=== PATIENT | male | born 1995 | race Caucasian/White ===

== ENCOUNTER 2017-09-15 03:26 | Emergency (ER) | payer OTHER ==
[2017-09-15] MEDS ORDERED: NS 0.9% 1000 ML*IV.FLUID IV ONE (03:53)
[2017-09-15] MEDS ORDERED: Acetaminophen TAB* 325 MG PO ONE (03:57)
[2017-09-15] MEDS ORDERED: Ketorolac INJ* 30 MG/ML 1 ML VIAL IV PUSH ONE (03:57)
[2017-09-15] MEDS ORDERED: methylPREDNISolone 125 MG* 2 ML VIAL IV ONE (03:57)
[2017-09-15] MEDS ORDERED: Clindamycin 900 MG IVPREMIX(* 900 MG/50 ML SDV IV ONE (03:58)
[2017-09-15 04:26] LABS: ABS Basophils 0 10^3/ul (0-0.2); ABS Eosinophils 0 10^3/ul (0-0.6); ABS Lymphocytes 0.9 10^3/ul (1.0-4.8); ABS Monocytes 1.2 10^3/ul (0-0.8); ABS Neutrophils 17.9 10^3/ul (1.5-7.7); ABS Nucleated RBC 0 10^3/ul; Eosinophil % 0.1 % (0-6); Hematocrit 46 % (42-52); Hemoglobin 16.4 g/dl (14.0-18.0); Lymphocyte % 4.4 % (25-47); Mean Corpuscular HGB Conc 35 g/dl (31-36); Mean Corpuscular Hemoglobin 32 pg (27-31); Mean Corpuscular Volume 90 fL (80-94); Mean Platelet Volume 9 um3 (7.4-10.4); Nucleated Red Blood Cells % 0; Platelet Count 167 10^3/ul (150-450); Red Blood Count 5.14 10^6/ul (4.0-5.4); Red Cell Distribution Width 13 % (10.5-15); White Blood Count 20.1 10^3/ul (3.5-10.8)
[2017-09-15 04:36] LABS: EGFR Non-African American 85.5 (>60)
[2017-09-15 06:05] VITALS: BP 141/57
--- NOTE | 2017-09-15 06:19 | ED ---
Keira Booth Nilda, scribed for Melissa John MD on 09/15/17 at 0611 . Throat Pain/Nasal Congestion - HPI Summary HPI Summary: This patient is a 22 year old M presenting to [facility] accompanied by father with a chief complaint of constant severe sore throat since yesterday. The patient rates the pain 10/10 in severity. Symptoms aggravated and alleviated by nothing. Patient reports chills, tonsillar swelling, and myalgia. Patient denies vomiting and fever. PMHx chronic back pain due to herniated disc. - History of Current Complaint Chief Complaint: EDThroatPain Time Seen by Provider: 09/15/17 03:38 Hx Obtained From: Patient Onset/Duration: Sudden Onset, Lasting Hours, Still Present Severity: Severe Cough: None - Allergies/Home Medications Allergies/Adverse Reactions: Allergies Allergy/AdvReac Type Severity Reaction Status Date / Time Amoxicillin Allergy Swelling Verified 09/15/17 04:24 Penicillins Allergy Unknown Verified 09/15/17 04:24 Reaction Details PMH/Surg Hx/FS Hx/Imm Hx Endocrine/Hematology History: Denies: Hx Anticoagulant Therapy, Hx Diabetes Cardiovascular History: Denies: Hx Hypertension, Hx Pacemaker/ICD History: Denies: Hx Renal Disease Musculoskeletal History: Reports: Hx Back Problems Denies: Hx Rheumatoid Arthritis, Hx Osteoporosis Sensory History: Denies: Hx Hearing Aid Neurological History: Reports: Other Neuro Impairments/Disorders - PAIN CLINIC INJECTIONS Psychiatric History: Denies: Hx Panic Disorder - Surgical History Surgery Procedure, Year, and Place: WISDOM TEETH Infectious Disease History: No Infectious Disease History: Denies: Traveled Outside the [place] in Last 30 Days - Family History Known Family History: Negative: Hypertension, Diabetes - Social History Alcohol Use: None Substance Use Type: Reports: None Smoking Status (MU): Never Smoked Tobacco Review of Systems Positive: Chills. Negative: Fever ENT: Other - tonsillar swelling Positive: Sore Throat Negative: Vomiting Positive: Myalgia, Other - chronic back pain All Other Systems Reviewed And Are Negative: Yes Physical Exam - Summary Physical Exam Summary: VITAL SIGNS: Reviewed. GENERAL: Patient is a well-developed and nourished male who is lying comfortable in the stretcher. Patient is not in any acute respiratory distress. HEAD AND FACE: No signs of trauma. No ecchymosis, hematomas or skull depressions. No sinus tenderness. EYES: PERRLA, EOMI x 2, No injected conjunctiva, no nystagmus. EARS: Hearing grossly intact. Ear canals and tympanic membranes are within normal limits. MOUTH: Bilat pharyngeal erythema without obvious exudate. NECK: Supple, trachea is midline, no JVD, no carotid bruit, no c-spine tenderness, neck with full ROM. Bilat upper cervical adenopathy CHEST: Symmetric, no tenderness at palpation LUNGS: Clear to auscultation bilaterally. No wheezing or crackles. CVS: Regular rate and rhythm, S1 and S2 present, no murmurs or gallops appreciated. ABDOMEN: Soft, non-tender. No signs of distention. No rebound no guarding, and no masses palpated. Bowel sounds are normal. EXTREMITIES: FROM in all major joints, no edema, no cyanosis or clubbing. NEURO: Alert and oriented x 3. No acute neurological deficits. Speech is normal and follows commands. SKIN: Dry and warm Triage Information Reviewed: Yes Vital Signs On Initial Exam: Initial Vitals Temp Pulse Resp BP Pulse Ox 101.8 F 108 20 152/83 100 09/15/17 03:29 09/15/17 03:29 09/15/17 03:29 09/15/17 03:29 09/15/17 03:29 Vital Signs Reviewed: Yes - James Coma Scale Coma Scale Total: 15 Diagnostics - Vital Signs Vital Signs Temp Pulse Resp BP Pulse Ox 09/15/17 05:06 100 137/64 96 09/15/17 05:00 103 97 09/15/17 04:30 102.8 F 143/61 09/15/17 04:29 94 100 09/15/17 03:29 101.8 F 108 20 152/83 100 - Laboratory Lab Results: Lab Results 09/15/17 09/15/17 09/15/17 Range/Units 04:08 04:08 04:08 WBC 20.1 H (3.5-10.8) 10^3/ul RBC 5.14 (4.0-5.4) 10^6/ul Hgb 16.4 (14.0-18.0) g/dl Hct 46 (42-52) % MCV 90 (80-94) fL MCH 32 H (27-31) pg MCHC 35 (31-36) g/dl RDW 13 (10.5-15) % Plt Count 167 (150-450) 10^3/ul MPV 9 (7.4-10.4) um3 Neut % (Auto) 89.2 H (38-83) % Lymph % (Auto) 4.4 L (25-47) % [place] % (Auto) 6.1 (1-9) % Eos % (Auto) 0.1 (0-6) % Baso % (Auto) 0.2 (0-2) % Absolute Neuts (auto) 17.9 H (1.5-7.7) 10^3/ul Absolute Lymphs (auto) 0.9 L (1.0-4.8) 10^3/ul Absolute Monos (auto) 1.2 H (0-0.8) 10^3/ul Absolute Eos (auto) 0 (0-0.6) 10^3/ul Absolute Basos (auto) 0 (0-0.2) 10^3/ul Absolute Nucleated RBC 0 10^3/ul Nucleated RBC % 0 Sodium 132 L (133-145) mmol/L Potassium 3.5 (3.5-5.0) mmol/L Chloride 99 L (101-111) mmol/L Carbon Dioxide 23 (22-32) mmol/L Anion Gap 10 (2-11) mmol/L BUN 13 (6-24) mg/dL Creatinine 1.08 (0.67-1.17) mg/dL Est GFR ( Amer) 110.0 (>60) Est GFR (Non-Af Amer) 85.5 (>60) BUN/Creatinine Ratio 12.0 (8-20) Glucose 149 H (70-100) mg/dL Lactic Acid 1.5 (0.5-2.0) mmol/L Calcium 9.9 (8.6-10.3) mg/dL Total Bilirubin 1.40 H (0.2-1.0) mg/dL AST 21 (13-39) U/L ALT 29 (7-52) U/L Alkaline Phosphatase 80 (34-104) U/L C-Reactive Protein 54.31 H (< 5.00) mg/L Total Protein 7.0 (6.4-8.9) g/dL Albumin 4.5 (3.2-5.2) g/dL Globulin 2.5 (2-4) g/dL Albumin/Globulin Ratio 1.8 (1-3) Monoscreen Negative (Negative) Influenza A (Rapid) (Negative) Influenza B (Rapid) (Negative) Group A Strep Rapid (Negative) 09/15/17 09/15/17 Range/Units 04:17 04:23 WBC (3.5-10.8) 10^3/ul RBC (4.0-5.4) 10^6/ul Hgb (14.0-18.0) g/dl Hct (42-52) % MCV (80-94) fL MCH (27-31) pg MCHC (31-36) g/dl RDW (10.5-15) % Plt Count (150-450) 10^3/ul MPV (7.4-10.4) um3 Neut % (Auto) (38-83) % Lymph % (Auto) (25-47) % [place] % (Auto) (1-9) % Eos % (Auto) (0-6) % Baso % (Auto) (0-2) % Absolute Neuts (auto) (1.5-7.7) 10^3/ul Absolute Lymphs (auto) (1.0-4.8) 10^3/ul Absolute Monos (auto) (0-0.8) 10^3/ul Absolute Eos (auto) (0-0.6) 10^3/ul Absolute Basos (auto) (0-0.2) 10^3/ul Absolute Nucleated RBC 10^3/ul Nucleated RBC % Sodium (133-145) mmol/L Potassium (3.5-5.0) mmol/L Chloride (101-111) mmol/L Carbon Dioxide (22-32) mmol/L Anion Gap (2-11) mmol/L BUN (6-24) mg/dL Creatinine (0.67-1.17) mg/dL Est GFR ( Amer) (>60) Est GFR (Non-Af Amer) (>60) BUN/Creatinine Ratio (8-20) Glucose (70-100) mg/dL Lactic Acid (0.5-2.0) mmol/L Calcium (8.6-10.3) mg/dL Total Bilirubin (0.2-1.0) mg/dL AST (13-39) U/L ALT (7-52) U/L Alkaline Phosphatase (34-104) U/L C-Reactive Protein (< 5.00) mg/L Total Protein (6.4-8.9) g/dL Albumin (3.2-5.2) g/dL Globulin (2-4) g/dL Albumin/Globulin Ratio (1-3) Monoscreen (Negative) Influenza A (Rapid) Negative (Negative) Influenza B (Rapid) Negative (Negative) Group A Strep Rapid Negative (Negative) Result Diagrams: 09/15/17 04:08 09/15/17 04:08 Lab Statement: Any lab studies that have been ordered have been reviewed, and results considered in the medical decision making process. Re-Evaluation - Re-Evaluation First Eval Re-Evaluation Time: 05:17 Comment: Reviewed labs with pt and father as well as plan to discharge. EENT Course/Dx - Course Assessment/Plan: Pt is a 22 y/o M presenting to ED with CC of severe sore throat and chills since yesterday. Exam reveals pharyngeal hyperemia. Lab showed leukocytosis. Pt most likely has bacterial pharyngitis. Pt is stable and will be D/C with antibiotics. Pt understands and is agreeable with plan. - Diagnoses Provider Diagnoses: Acute bacterial pharyngitis Discharge - Discharge Plan Condition: Stable Disposition: HOME Prescriptions: Clindamycin Cap(NF) [Clindamycin Cap 300 mg Cap(NF)] 300 mg PO Q6H #30 cap Ibuprofen TAB* [Motrin TAB* 800 MG] 800 mg PO Q6H PRN #30 tab PRN Reason: Fever/Pain predniSONE TAB* [Deltasone TAB*] 40 mg PO DAILY #6 tab Patient Education Materials: Pharyngitis (ED) Referrals: Julian Vasquez MD [Primary Care Provider] - 3 Days Additional Instructions: RETURN TO THE EMERGENCY DEPARTMENT FOR CHANGING OR WORSENING SYMPTOMS. The documentation as recorded by the Keira ruiz Nilda accurately reflects the service I personally performed and the decisions made by , Melissa John MD.
== END 2017-09-15 06:05 | disposition home or self-care (01) ==
LOC: ED 03:26
DX: J02.9 Acute pharyngitis, unspecified (principal)
CPT/HCPCS: 36415; 80053; 83605; 85025; 86140; 86308; 87040; 87502; 87651; 96365; 96375; 99284; A9270-GY; J1885; J2930

== ENCOUNTER 2018-01-20 16:40 | Emergency (ER) | payer OTHER ==
--- OUTSIDE RECORDS SUMMARY | 2018-01-20 16:48 | XMS REPORT ---
:1995 External Reference #:[id number] Author Organization [facility] Address [address] [place] [address] Phone [phone] Care Team Providers Name Role Phone Ken Medina M.D. 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 Onset: 08/03/2014 Allergic rhinitis Allan Martinez MD Active Onset: 08/03/2014 Dysfunction of eustachian tube Allan Martinez MD Active Family History Date Family Member(s) Problem(s) Comments General Allergies General Migraine Onset: (age 30 Years) Mother Migraine Social History Type Date Description Comments Occupation Student Cigarette Use Never Smoked Cigarettes Cigars Never Smoked Cigars Pipe Never Smoked A Pipe Smokeless Tobacco Never Used Smokeless Tobacco ETOH Use Currently occasionally consumes alcohol Smoking Patient has never smoked Allergies, Adverse Reactions, Alerts Date Description Reaction Status Severity Comments 08/03/2014 Penicillin facial edema active 12/24/2017 Amoxicillin edema, itching active Medications Medication Date Status Form Strength Qnty SIG Indications Ordering Provider Omeprazole Active Capsules DR 10mg Madayo, /0000 Jordan Quinnd Vitamin C Active Capsules 500mg 1 by mouth Self /0000 twice a day Methylprednisolon 09/06 Hx Tablets 4mg 1pack take as Allan schneider ( directed Andrade Peña MD 10/17 Flonase 08/03 Hx Suspension 50mcg/Act 1Mont 2 sprays h intranasal Andrade Peña every day 12/23 Naproxen Hx Tablets 250mg 60tab 1 tab by Self /0000 s mouth - twice a Tylenol Extra Hx Tablets 500mg 2 by mouth Self Strength /0000 every day - as needed 12/23 Vitamin C Hx Tablets 500mg take as Self /0000 directed - 12/23 Vital Signs Date Vital Result Comment 12/24/2017 Weight 194.00 lb Weight in kg's 87.998 Height 70 inches 5'10" Height in cm's 177.8 cm BMI (Body Mass Index) 27.8 kg/m2 10/18/2014 BP Systolic 145 mmHg BP Diastolic 73 mmHg Heart Rate 60 /min Respiratory Rate 17 /min Weight 175.00 lb Weight in kg's 79.380 Height 70 inches 5'10" Height in cm's 177.8 cm BMI (Body Mass Index) 25.1 kg/m2 09/06/2014 BP Systolic 132 mmHg BP Diastolic 78 mmHg Heart Rate 85 /min Respiratory Rate 16 /min Weight 175.00 lb Weight in kg's 79.380 Height 70 inches 5'10" Height in cm's 177.8 cm BMI (Body Mass Index) 25.1 kg/m2 08/03/2014 BP Systolic 124 mmHg BP Diastolic 73 mmHg Heart Rate 75 /min Respiratory Rate 16 /min Weight 175.00 lb Weight in kg's 79.380 Height 70 inches 5'10" Height in cm's 177.8 cm BMI (Body Mass Index) 25.1 kg/m2 Results Test Date Test Result H/L Range Note [facility] 09/06/2014 Alternaria tenuis IgE 5.47 kU/L 1 Panel Allergen A pullulans IgE Allergen 0.45 kU/L 2 Aspergillus Fumigatus IgE 0.54 kU/L 3 Botrytis Allergen IgE <0.35 kU/L 4 Valerie albicans Allergen IgE 0.84 kU/L 5 Cladosporium herbarum IgE <0.35 kU/L 6 Dermatophagoides farinae IgE 2.06 kU/L 7 Dermatophagoides pteronyssinus 0.50 kU/L 8 Epicoccum Allergen IgE 0.37 kU/L 9 Fusarium moniliforme Allergen 0.70 kU/L 10 Helminthosporium halodes IgE 0.59 kU/L 11 House Dust/Mar Allergen IgE <0.35 kU/L 12 House Dust/Inna Wyatt IgE <0.35 kU/L 13 Mucor racemosus Allergen IgE <0.35 kU/L 14 Penicillium notatum Allerg IgE <0.35 kU/L 15 Rhizopus nigricans Allerg IgE <0.35 kU/L 16 Stemphyllium IgE Allergen 1.11 kU/L 17 Trichophyton rubrum Allergen <0.35 kU/L 18 Ustilago nuda IgE Allergen <0.35 kU/L 19 [facility] All[facility] Panel 09/06/2014 Black/White Pepper IgE <0.35 kU/L 20 Allerg Egg White Allergen IgE <0.35 kU/L 21 Cat Epithelium Allergen IgE <0.35 kU/L 22 Chicken Meat Allergen IgE <0.35 kU/L 23 Chocolate Allergen IgE <0.35 kU/L 24 Coconut Allergen IgE <0.35 kU/L 25 Cockroach Allergen IgE <0.35 kU/L 26 Tarzan Allergen IgE <0.35 kU/L 27 Cow Epithelium Allergen IgE <0.35 kU/L 28 Dog Dander Allergen IgE <0.35 kU/L 29 Egg Yolk Allergen IgE <0.35 kU/L 30 Feather Mix Allergy Screen <0.35 kU/L 31 Garlic Allergen IgE <0.35 kU/L 32 Guinea Pig Allergen IgE <0.35 kU/L 33 Horse Dander Allergen IgE <0.35 kU/L 34 Malt Allergen IgE Antibody <0.35 kU/L 35 Cow's Milk Allergen IgE <0.35 kU/L 36 Onion Allergen IgE <0.35 kU/L 37 Blackburn Allergen IgE <0.35 kU/L 38 Rice Allergen IgE <0.35 kU/L 39 Soybean Allergen IgE <0.35 kU/L 40 Tomato Allergen IgE <0.35 kU/L 41 Wheat Allergen IgE <0.35 kU/L 42 Prakash's Yeast Allergen IgE <0.35 kU/L 43 [facility] All[facility] Panel 09/06/2014 Alternaria tenuis IgE Allergen 5.47 kU/ L 44 A pullulans IgE Allergen 0.45 kU/L 45 Aspergillus Fumigatus IgE 0.54 kU/L 46 Botrytis Allergen IgE <0.35 kU/L 47 Valerie albicans Allergen IgE 0.84 kU/L 48 Cladosporium herbarum IgE <0.35 kU/L 49 Dermatophagoides farinae IgE 2.06 kU/L 50 Dermatophagoides pteronyssinus 0.50 kU/L 51 Epicoccum Allergen IgE 0.37 kU/L 52 Fusarium moniliforme Allergen 0.70 kU/L 53 Helminthosporium halodes IgE 0.59 kU/L 54 House Dust/Mar Allergen IgE <0.35 kU/L 55 House Dust/Naples Wyatt IgE <0.35 kU/L 56 Mucor racemosus Allergen IgE <0.35 kU/L 57 Penicillium notatum Allerg IgE <0.35 kU/L 58 Rhizopus nigricans Allerg IgE <0.35 kU/L 59 Stemphyllium IgE Allergen 1.11 kU/L 60 Trichophyton rubrum Allergen <0.35 kU/L 61 Ustilago nuda IgE Allergen <0.35 kU/L 62 [facility] All[facility] Panel 09/06/2014 Black/White Pepper IgE <0.35 kU/L 63 Allerg Egg White Allergen IgE <0.35 kU/L 64 Cat Epithelium Allergen IgE <0.35 kU/L 65 Chicken Meat Allergen IgE <0.35 kU/L 66 Chocolate Allergen IgE <0.35 kU/L 67 Coconut Allergen IgE <0.35 kU/L 68 Cockroach Allergen IgE <0.35 kU/L 69 Tarzan Allergen IgE <0.35 kU/L 70 Cow Epithelium Allergen IgE <0.35 kU/L 71 Dog Dander Allergen IgE <0.35 kU/L 72 Egg Yolk Allergen IgE <0.35 kU/L 73 Feather Mix Allergy Screen <0.35 kU/L 74 Garlic Allergen IgE <0.35 kU/L 75 Guinea Pig Allergen IgE <0.35 kU/L 76 Horse Dander Allergen IgE <0.35 kU/L 77 Malt Allergen IgE Antibody <0.35 kU/L 78 Cow's Milk Allergen IgE <0.35 kU/L 79 Onion Allergen IgE <0.35 kU/L 80 Blackburn Allergen IgE <0.35 kU/L 81 Rice Allergen IgE <0.35 kU/L 82 Soybean Allergen IgE <0.35 kU/L 83 Tomato Allergen IgE <0.35 kU/L 84 Wheat Allergen IgE <0.35 kU/L 85 Prakash's Yeast Allergen IgE <0.35 kU/L 86 [facility] All[facility] Panel 09/06/2014 Alternaria tenuis IgE Allergen 5.47 kU/ L 87 A pullulans IgE Allergen 0.45 kU/L 88 Aspergillus Fumigatus IgE 0.54 kU/L 89 Botrytis Allergen IgE <0.35 kU/L 90 Valerie albicans Allergen IgE 0.84 kU/L 91 Cladosporium herbarum IgE <0.35 kU/L 92 Dermatophagoides farinae IgE 2.06 kU/L 93 Dermatophagoides pteronyssinus 0.50 kU/L 94 Epicoccum Allergen IgE 0.37 kU/L 95 Fusarium moniliforme Allergen 0.70 kU/L 96 Helminthosporium halodes IgE 0.59 kU/L 97 House Dust/Mar Allergen IgE <0.35 kU/L 98 House Dust/Inna Wyatt IgE <0.35 kU/L 99 Mucor racemosus Allergen IgE <0.35 kU/L 100 Penicillium notatum Allerg IgE <0.35 kU/L 101 Rhizopus nigricans Allerg IgE <0.35 kU/L 102 Stemphyllium IgE Allergen 1.11 kU/L 103 Trichophyton rubrum Allergen <0.35 kU/L 104 Ustilago nuda IgE Allergen <0.35 kU/L 105 [facility] Panel 09/06/2014 Black/White Pepper IgE <0.35 kU/L 106 Allerg Egg White Allergen IgE <0.35 kU/L 107 Cat Epithelium Allergen IgE <0.35 kU/L 108 Chicken Meat Allergen IgE <0.35 kU/L 109 Chocolate Allergen IgE <0.35 kU/L 110 Coconut Allergen IgE <0.35 kU/L 111 Cockroach Allergen IgE <0.35 kU/L 112 Tarzan Allergen IgE <0.35 kU/L 113 Cow Epithelium Allergen IgE <0.35 kU/L 114 Dog Dander Allergen IgE <0.35 kU/L 115 Egg Yolk Allergen IgE <0.35 kU/L 116 Feather Mix Allergy Screen <0.35 kU/L 117 Garlic Allergen IgE <0.35 kU/L 118 Guinea Pig Allergen IgE <0.35 kU/L 119 Horse Dander Allergen IgE <0.35 kU/L 120 Malt Allergen IgE Antibody <0.35 kU/L 121 Cow's Milk Allergen IgE <0.35 kU/L 122 Onion Allergen IgE <0.35 kU/L 123 Blackburn Allergen IgE <0.35 kU/L 124 Rice Allergen IgE <0.35 kU/L 125 Soybean Allergen IgE <0.35 kU/L 126 Tomato Allergen IgE <0.35 kU/L 127 Wheat Allergen IgE <0.35 kU/L 128 Prakash's Yeast Allergen IgE <0.35 kU/L 129 [facility] Allergy Panel 09/06/2014 Alternaria tenuis IgE Allergen 5.47 kU/ L 130 A pullulans IgE Allergen 0.45 kU/L 131 Aspergillus Fumigatus IgE 0.54 kU/L 132 Botrytis Allergen IgE <0.35 kU/L 133 Valerie albicans Allergen IgE 0.84 kU/L 134 Cladosporium herbarum IgE <0.35 kU/L 135 Dermatophagoides farinae IgE 2.06 kU/L 136 Dermatophagoides pteronyssinus 0.50 kU/L 137 Epicoccum Allergen IgE 0.37 kU/L 138 Fusarium moniliforme Allergen 0.70 kU/L 139 Helminthosporium halodes IgE 0.59 kU/L 140 House Dust/Mar Allergen IgE <0.35 kU/L 141 House Dust/Inna Wyatt IgE <0.35 kU/L 142 Mucor racemosus Allergen IgE <0.35 kU/L 143 Penicillium notatum Allerg IgE <0.35 kU/L 144 Rhizopus nigricans Allerg IgE <0.35 kU/L 145 Stemphyllium IgE Allergen 1.11 kU/L 146 Trichophyton rubrum Allergen <0.35 kU/L 147 Ustilago nuda IgE Allergen <0.35 kU/L 148 [facility] All[facility] Panel 09/06/2014 Black/White Pepper IgE <0.35 kU/L 149 Allerg Egg White Allergen IgE <0.35 kU/L 150 Cat Epithelium Allergen IgE <0.35 kU/L 151 Chicken Meat Allergen IgE <0.35 kU/L 152 Chocolate Allergen IgE <0.35 kU/L 153 Coconut Allergen IgE <0.35 kU/L 154 Cockroach Allergen IgE <0.35 kU/L 155 Tarzan Allergen IgE <0.35 kU/L 156 Cow Epithelium Allergen IgE <0.35 kU/L 157 Dog Dander Allergen IgE <0.35 kU/L 158 Egg Yolk Allergen IgE <0.35 kU/L 159 Feather Mix Allergy Screen <0.35 kU/L 160 Garlic Allergen IgE <0.35 kU/L 161 Guinea Pig Allergen IgE <0.35 kU/L 162 Horse Dander Allergen IgE <0.35 kU/L 163 Malt Allergen IgE Antibody <0.35 kU/L 164 Cow's Milk Allergen IgE <0.35 kU/L 165 Onion Allergen IgE <0.35 kU/L 166 Blackburn Allergen IgE <0.35 kU/L 167 Rice Allergen IgE <0.35 kU/L 168 Soybean Allergen IgE <0.35 kU/L 169 Tomato Allergen IgE <0.35 kU/L 170 Wheat Allergen IgE <0.35 kU/L 171 Prakash's Yeast Allergen IgE <0.35 kU/L 172 [facility] All[facility] Panel 09/06/2014 Alternaria tenuis IgE Allergen 5.47 kU/ L 173 A pullulans IgE Allergen 0.45 kU/L 174 Aspergillus Fumigatus IgE 0.54 kU/L 175 Botrytis Allergen IgE <0.35 kU/L 176 Valerie albicans Allergen IgE 0.84 kU/L 177 Cladosporium herbarum IgE <0.35 kU/L 178 Dermatophagoides farinae IgE 2.06 kU/L 179 Dermatophagoides pteronyssinus 0.50 kU/L 180 Epicoccum Allergen IgE 0.37 kU/L 181 Fusarium moniliforme Allergen 0.70 kU/L 182 Helminthosporium halodes IgE 0.59 kU/L 183 House Dust/Mar Allergen IgE <0.35 kU/L 184 House Dust/Naples Wyatt IgE <0.35 kU/L 185 Mucor racemosus Allergen IgE <0.35 kU/L 186 Penicillium notatum Allerg IgE <0.35 kU/L 187 Rhizopus nigricans Allerg IgE <0.35 kU/L 188 Stemphyllium IgE Allergen 1.11 kU/L 189 Trichophyton rubrum Allergen <0.35 kU/L 190 Ustilago nuda IgE Allergen <0.35 kU/L 191 [facility] All[facility] Panel 09/06/2014 Black/White Pepper IgE <0.35 kU/L 192 Allerg Egg White Allergen IgE <0.35 kU/L 193 Cat Epithelium Allergen IgE <0.35 kU/L 194 Chicken Meat Allergen IgE <0.35 kU/L 195 Chocolate Allergen IgE <0.35 kU/L 196 Coconut Allergen IgE <0.35 kU/L 197 Cockroach Allergen IgE <0.35 kU/L 198 Tarzan Allergen IgE <0.35 kU/L 199 Cow Epithelium Allergen IgE <0.35 kU/L 200 Dog Dander Allergen IgE <0.35 kU/L 201 Egg Yolk Allergen IgE <0.35 kU/L 202 Feather Mix Allergy Screen <0.35 kU/L 203 Garlic Allergen IgE <0.35 kU/L 204 Guinea Pig Allergen IgE <0.35 kU/L 205 Horse Dander Allergen IgE <0.35 kU/L 206 Malt Allergen IgE Antibody <0.35 kU/L 207 Cow's Milk Allergen IgE <0.35 kU/L 208 Onion Allergen IgE <0.35 kU/L 209 Blackburn Allergen IgE <0.35 kU/L 210 Rice Allergen IgE <0.35 kU/L 211 Soybean Allergen IgE <0.35 kU/L 212 Tomato Allergen IgE <0.35 kU/L 213 Wheat Allergen IgE <0.35 kU/L 214 Prakash's Yeast Allergen IgE <0.35 kU/L 215 [facility] All[facility] Panel 09/06/2014 Alternaria tenuis IgE Allergen 5.47 kU/ L 216 A pullulans IgE Allergen 0.45 kU/L 217 Aspergillus Fumigatus IgE 0.54 kU/L 218 Botrytis Allergen IgE <0.35 kU/L 219 Valerie albicans Allergen IgE 0.84 kU/L 220 Cladosporium herbarum IgE <0.35 kU/L 221 Dermatophagoides farinae IgE 2.06 kU/L 222 Dermatophagoides pteronyssinus 0.50 kU/L 223 Epicoccum Allergen IgE 0.37 kU/L 224 Fusarium moniliforme Allergen 0.70 kU/L 225 Helminthosporium halodes IgE 0.59 kU/L 226 House Dust/Mar Allergen IgE <0.35 kU/L 227 House Dust/Naples Wyatt IgE <0.35 kU/L 228 Mucor racemosus Allergen IgE <0.35 kU/L 229 Penicillium notatum Allerg IgE <0.35 kU/L 230 Rhizopus nigricans Allerg IgE <0.35 kU/L 231 Stemphyllium IgE Allergen 1.11 kU/L 232 Trichophyton rubrum Allergen <0.35 kU/L 233 Ustilago nuda IgE Allergen <0.35 kU/L 234 [facility] All[facility] Panel 09/06/2014 Black/White Pepper IgE <0.35 kU/L 235 Allerg Egg White Allergen IgE <0.35 kU/L 236 Cat Epithelium Allergen IgE <0.35 kU/L 237 Chicken Meat Allergen IgE <0.35 kU/L 238 Chocolate Allergen IgE <0.35 kU/L 239 Coconut Allergen IgE <0.35 kU/L 240 Cockroach Allergen IgE <0.35 kU/L 241 Tarzan Allergen IgE <0.35 kU/L 242 Cow Epithelium Allergen IgE <0.35 kU/L 243 Dog Dander Allergen IgE <0.35 kU/L 244 Egg Yolk Allergen IgE <0.35 kU/L 245 Feather Mix Allergy Screen <0.35 kU/L 246 Garlic Allergen IgE <0.35 kU/L 247 Guinea Pig Allergen IgE <0.35 kU/L 248 Horse Dander Allergen IgE <0.35 kU/L 249 Malt Allergen IgE Antibody <0.35 kU/L 250 Cow's Milk Allergen IgE <0.35 kU/L 251 Onion Allergen IgE <0.35 kU/L 252 Blackburn Allergen IgE <0.35 kU/L 253 Rice Allergen IgE <0.35 kU/L 254 Soybean Allergen IgE <0.35 kU/L 255 Tomato Allergen IgE <0.35 kU/L 256 Wheat Allergen IgE <0.35 kU/L 257 Prakash's Yeast Allergen IgE <0.35 kU/L 258 [facility] Allergy Panel 09/06/2014 Alternaria tenuis IgE Allergen 5.47 kU/ L 259 A pullulans IgE Allergen 0.45 kU/L 260 Aspergillus Fumigatus IgE 0.54 kU/L 261 Botrytis Allergen IgE <0.35 kU/L 262 Valerie albicans Allergen IgE 0.84 kU/L 263 Cladosporium herbarum IgE <0.35 kU/L 264 Dermatophagoides farinae IgE 2.06 kU/L 265 Dermatophagoides pteronyssinus 0.50 kU/L 266 Epicoccum Allergen IgE 0.37 kU/L 267 Fusarium moniliforme Allergen 0.70 kU/L 268 Helminthosporium halodes IgE 0.59 kU/L 269 House Dust/Mar Allergen IgE <0.35 kU/L 270 House Dust/Inna Wyatt IgE <0.35 kU/L 271 Mucor racemosus Allergen IgE <0.35 kU/L 272 Penicillium notatum Allerg IgE <0.35 kU/L 273 Rhizopus nigricans Allerg IgE <0.35 kU/L 274 Stemphyllium IgE Allergen 1.11 kU/L 275 Trichophyton rubrum Allergen <0.35 kU/L 276 Ustilago nuda IgE Allergen <0.35 kU/L 277 [facility] Allergy Panel 09/06/2014 Black/White Pepper IgE <0.35 kU/L 278 Allerg Egg White Allergen IgE <0.35 kU/L 279 Cat Epithelium Allergen IgE <0.35 kU/L 280 Chicken Meat Allergen IgE <0.35 kU/L 281 Chocolate Allergen IgE <0.35 kU/L 282 Coconut Allergen IgE <0.35 kU/L 283 Cockroach Allergen IgE <0.35 kU/L 284 Tarzan Allergen IgE <0.35 kU/L 285 Cow Epithelium Allergen IgE <0.35 kU/L 286 Dog Dander Allergen IgE <0.35 kU/L 287 Egg Yolk Allergen IgE <0.35 kU/L 288 Feather Mix Allergy Screen <0.35 kU/L 289 Garlic Allergen IgE <0.35 kU/L 290 Guinea Pig Allergen IgE <0.35 kU/L 291 Horse Dander Allergen IgE <0.35 kU/L 292 Malt Allergen IgE Antibody <0.35 kU/L 293 Cow's Milk Allergen IgE <0.35 kU/L 294 Onion Allergen IgE <0.35 kU/L 295 Blackburn Allergen IgE <0.35 kU/L 296 Rice Allergen IgE <0.35 kU/L 297 Soybean Allergen IgE <0.35 kU/L 298 Tomato Allergen IgE <0.35 kU/L 299 Wheat Allergen IgE <0.35 kU/L 300 Prakash's Yeast Allergen IgE <0.35 kU/L 301 1 Class 3 (Positive 3.50-17.4) 2 Class 1 (Equivocal 0.35-0.69) 3 Class 1 (Equivocal 0.35-0.69) 4 Class 0 (Negative <0.35) 5 Class 2 (Positive 0.70-3.49) 6 Class 0 (Negative <0.35) 7 Class 2 (Positive 0.70-3.49) 8 Class 1 (Equivocal 0.35-0.69) 9 Class 1 (Equivocal 0.35-0.69) 10 Class 2 (Positive 0.70-3.49) 11 Class 1 (Equivocal 0.35-0.69) 12 Class 0 (Negative <0.35) 13 Class 0 (Negative <0.35) Test Performed by: [address] [address] Ironworker: Atilio Ji M.D. 14 Class 0 (Negative <0.35) 15 Class 0 (Negative <0.35) 16 Class 0 (Negative <0.35) 17 Class 2 (Positive 0.70-3.49) 18 Class 0 (Negative <0.35) 19 Class 0 (Negative <0.35) ADDITIONAL INFORMATION Analyte Specific Reagent: This test was developed and its performance characteristics determined by [facility]. It has not been cleared or approved by the U.S. Food and Drug Administration. 20 Class 0 (Negative <0.35) 21 Class 0 (Negative <0.35) 22 Class 0 (Negative <0.35) 23 Class 0 (Negative <0.35) 24 Class 0 (Negative <0.35) 25 Class 0 (Negative <0.35) 26 Class 0 (Negative <0.35) 27 Class 0 (Negative <0.35) 28 Class 0 (Negative <0.35) 29 Class 0 (Negative <0.35) 30 Class 0 (Negative <0.35) 31 Class 0 (Negative <0.35) ADDITIONAL INFORMATION Feather Panel 2: Goose feathers Chicken feathers Duck feathers Amelia feathers Analyte Specific Reagent: This test was developed and its performance characteristics determined by [facility]. It has not been cleared or approved by the U.S. Food and Drug Administration. 32 Class 0 (Negative <0.35) 33 Class 0 (Negative <0.35) 34 Class 0 (Negative <0.35) Test Performed by: [facility] - [address] [address] Ironworker: Atilio Ji M.D. 35 Class 0 (Negative <0.35) 36 Class 0 (Negative <0.35) 37 Class 0 (Negative <0.35) 38 Class 0 (Negative <0.35) 39 Class 0 (Negative <0.35) 40 Class 0 (Negative <0.35) 41 Class 0 (Negative <0.35) 42 Class 0 (Negative <0.35) 43 Class 0 (Negative <0.35) 44 Class 3 (Positive 3.50-17.4) 45 Class 1 (Equivocal 0.35-0.69) 46 Class 1 (Equivocal 0.35-0.69) 47 Class 0 (Negative <0.35) 48 Class 2 (Positive 0.70-3.49) 49 Class 0 (Negative <0.35) 50 Class 2 (Positive 0.70-3.49) 51 Class 1 (Equivocal 0.35-0.69) 52 Class 1 (Equivocal 0.35-0.69) 53 Class 2 (Positive 0.70-3.49) 54 Class 1 (Equivocal 0.35-0.69) 55 Class 0 (Negative <0.35) 56 Class 0 (Negative <0.35) Test Performed by: [facility] - [address] [address] Ironworker: Atilio Ji M.D. 57 Class 0 (Negative <0.35) 58 Class 0 (Negative <0.35) 59 Class 0 (Negative <0.35) 60 Class 2 (Positive 0.70-3.49) 61 Class 0 (Negative <0.35) 62 Class 0 (Negative <0.35) ADDITIONAL INFORMATION Analyte Specific Reagent: This test was developed and its performance characteristics determined by [facility]. It has not been cleared or approved by the U.S. Food and Drug Administration. 63 Class 0 (Negative <0.35) 64 Class 0 (Negative <0.35) 65 Class 0 (Negative <0.35) 66 Class 0 (Negative <0.35) 67 Class 0 (Negative <0.35) 68 Class 0 (Negative <0.35) 69 Class 0 (Negative <0.35) 70 Class 0 (Negative <0.35) 71 Class 0 (Negative <0.35) 72 Class 0 (Negative <0.35) 73 Class 0 (Negative <0.35) 74 Class 0 (Negative <0.35) ADDITIONAL INFORMATION Feather Panel 2: Goose feathers Chicken feathers Duck feathers Amelia feathers Analyte Specific Reagent: This test was developed and its performance characteristics determined by [facility]. It has not been cleared or approved by the U.S. Food and Drug Administration. 75 Class 0 (Negative <0.35) 76 Class 0 (Negative <0.35) 77 Class 0 (Negative <0.35) Test Performed by: [place] [address] Ironworker: Atilio Ji M.D. 78 Class 0 (Negative <0.35) 79 Class 0 (Negative <0.35) 80 Class 0 (Negative <0.35) 81 Class 0 (Negative <0.35) 82 Class 0 (Negative <0.35) 83 Class 0 (Negative <0.35) 84 Class 0 (Negative <0.35) 85 Class 0 (Negative <0.35) 86 Class 0 (Negative <0.35) 87 Class 3 (Positive 3.50-17.4) 88 Class 1 (Equivocal 0.35-0.69) 89 Class 1 (Equivocal 0.35-0.69) 90 Class 0 (Negative <0.35) 91 Class 2 (Positive 0.70-3.49) 92 Class 0 (Negative <0.35) 93 Class 2 (Positive 0.70-3.49) 94 Class 1 (Equivocal 0.35-0.69) 95 Class 1 (Equivocal 0.35-0.69) 96 Class 2 (Positive 0.70-3.49) 97 Class 1 (Equivocal 0.35-0.69) 98 Class 0 (Negative <0.35) 99 Class 0 (Negative <0.35) Test Performed by: [place] [address] Ironworker: Atilio Ji M.D. 100 Class 0 (Negative <0.35) 101 Class 0 (Negative <0.35) 102 Class 0 (Negative <0.35) 103 Class 2 (Positive 0.70-3.49) 104 Class 0 (Negative <0.35) 105 Class 0 (Negative <0.35) ADDITIONAL INFORMATION Analyte Specific Reagent: This test was developed and its performance characteristics determined by [facility]. It has not been cleared or approved by the U.S. Food and Drug Administration. 106 Class 0 (Negative <0.35) 107 Class 0 (Negative <0.35) 108 Class 0 (Negative <0.35) 109 Class 0 (Negative <0.35) 110 Class 0 (Negative <0.35) 111 Class 0 (Negative <0.35) 112 Class 0 (Negative <0.35) 113 Class 0 (Negative <0.35) 114 Class 0 (Negative <0.35) 115 Class 0 (Negative <0.35) 116 Class 0 (Negative <0.35) 117 Class 0 (Negative <0.35) ADDITIONAL INFORMATION Feather Panel 2: Goose feathers Chicken feathers Duck feathers Amelia feathers Analyte Specific Reagent: This test was developed and its performance characteristics determined by [facility]. It has not been cleared or approved by the U.S. Food and Drug Administration. 118 Class 0 (Negative <0.35) 119 Class 0 (Negative <0.35) 120 Class 0 (Negative <0.35) Test Performed by: [place] [address] Ironworker: Atilio Ji M.D. 121 Class 0 (Negative <0.35) 122 Class 0 (Negative <0.35) 123 Class 0 (Negative <0.35) 124 Class 0 (Negative <0.35) 125 Class 0 (Negative <0.35) 126 Class 0 (Negative <0.35) 127 Class 0 (Negative <0.35) 128 Class 0 (Negative <0.35) 129 Class 0 (Negative <0.35) 130 Class 3 (Positive 3.50-17.4) 131 Class 1 (Equivocal 0.35-0.69) 132 Class 1 (Equivocal 0.35-0.69) 133 Class 0 (Negative <0.35) 134 Class 2 (Positive 0.70-3.49) 135 Class 0 (Negative <0.35) 136 Class 2 (Positive 0.70-3.49) 137 Class 1 (Equivocal 0.35-0.69) 138 Class 1 (Equivocal 0.35-0.69) 139 Class 2 (Positive 0.70-3.49) 140 Class 1 (Equivocal 0.35-0.69) 141 Class 0 (Negative <0.35) 142 Class 0 (Negative <0.35) Test Performed by: [place] [id number] Ironworker: Atilio Ji M.D. 143 Class 0 (Negative <0.35) 144 Class 0 (Negative <0.35) 145 Class 0 (Negative <0.35) 146 Class 2 (Positive 0.70-3.49) 147 Class 0 (Negative <0.35) 148 Class 0 (Negative <0.35) ADDITIONAL INFORMATION Analyte Specific Reagent: This test was developed and its performance characteristics determined by [facility]. It has not been cleared or approved by the U.S. Food and Drug Administration. 149 Class 0 (Negative <0.35) 150 Class 0 (Negative <0.35) 151 Class 0 (Negative <0.35) 152 Class 0 (Negative <0.35) 153 Class 0 (Negative <0.35) 154 Class 0 (Negative <0.35) 155 Class 0 (Negative <0.35) 156 Class 0 (Negative <0.35) 157 Class 0 (Negative <0.35) 158 Class 0 (Negative <0.35) 159 Class 0 (Negative <0.35) 160 Class 0 (Negative <0.35) ADDITIONAL INFORMATION Feather Panel 2: Goose feathers Chicken feathers Duck feathers Amelia feathers Analyte Specific Reagent: This test was developed and its performance characteristics determined by [facility]. It has not been cleared or approved by the [place]. Food and Drug Administration. 161 Class 0 (Negative <0.35) 162 Class 0 (Negative <0.35) 163 Class 0 (Negative <0.35) Test Performed by: [address] [address] Ironworker: Atilio Ji M.D. 164 Class 0 (Negative <0.35) 165 Class 0 (Negative <0.35) 166 Class 0 (Negative <0.35) 167 Class 0 (Negative <0.35) 168 Class 0 (Negative <0.35) 169 Class 0 (Negative <0.35) 170 Class 0 (Negative <0.35) 171 Class 0 (Negative <0.35) 172 Class 0 (Negative <0.35) 173 Class 3 (Positive 3.50-17.4) 174 Class 1 (Equivocal 0.35-0.69) 175 Class 1 (Equivocal 0.35-0.69) 176 Class 0 (Negative <0.35) 177 Class 2 (Positive 0.70-3.49) 178 Class 0 (Negative <0.35) 179 Class 2 (Positive 0.70-3.49) 180 Class 1 (Equivocal 0.35-0.69) 181 Class 1 (Equivocal 0.35-0.69) 182 Class 2 (Positive 0.70-3.49) 183 Class 1 (Equivocal 0.35-0.69) 184 Class 0 (Negative <0.35) 185 Class 0 (Negative <0.35) Test Performed by: [facility] [address] [address] Ironworker: Atilio Ji M.D. 186 Class 0 (Negative <0.35) 187 Class 0 (Negative <0.35) 188 Class 0 (Negative <0.35) 189 Class 2 (Positive 0.70-3.49) 190 Class 0 (Negative <0.35) 191 Class 0 (Negative <0.35) ADDITIONAL INFORMATION Analyte Specific Reagent: This test was developed and its performance characteristics determined by [facility]. It has not been cleared or approved by the U.S. Food and Drug Administration. 192 Class 0 (Negative <0.35) 193 Class 0 (Negative <0.35) 194 Class 0 (Negative <0.35) 195 Class 0 (Negative <0.35) 196 Class 0 (Negative <0.35) 197 Class 0 (Negative <0.35) 198 Class 0 (Negative <0.35) 199 Class 0 (Negative <0.35) 200 Class 0 (Negative <0.35) 201 Class 0 (Negative <0.35) 202 Class 0 (Negative <0.35) 203 Class 0 (Negative <0.35) ADDITIONAL INFORMATION Feather Panel 2: Goose feathers Chicken feathers Duck feathers Amelia feathers Analyte Specific Reagent: This test was developed and its performance characteristics determined by [facility]. It has not been cleared or approved by the U.S. Food and Drug Administration. 204 Class 0 (Negative <0.35) 205 Class 0 (Negative <0.35) 206 Class 0 (Negative <0.35) Test Performed by: [place] [id number] Ironworker: Atilio Ji M.D. 207 Class 0 (Negative <0.35) 208 Class 0 (Negative <0.35) 209 Class 0 (Negative <0.35) 210 Class 0 (Negative <0.35) 211 Class 0 (Negative <0.35) 212 Class 0 (Negative <0.35) 213 Class 0 (Negative <0.35) 214 Class 0 (Negative <0.35) 215 Class 0 (Negative <0.35) 216 Class 3 (Positive 3.50-17.4) 217 Class 1 (Equivocal 0.35-0.69) 218 Class 1 (Equivocal 0.35-0.69) 219 Class 0 (Negative <0.35) 220 Class 2 (Positive 0.70-3.49) 221 Class 0 (Negative <0.35) 222 Class 2 (Positive 0.70-3.49) 223 Class 1 (Equivocal 0.35-0.69) 224 Class 1 (Equivocal 0.35-0.69) 225 Class 2 (Positive 0.70-3.49) 226 Class 1 (Equivocal 0.35-0.69) 227 Class 0 (Negative <0.35) 228 Class 0 (Negative <0.35) Test Performed by: [address] [address] Ironworker: Atilio Ji M.D. 229 Class 0 (Negative <0.35) 230 Class 0 (Negative <0.35) 231 Class 0 (Negative <0.35) 232 Class 2 (Positive 0.70-3.49) 233 Class 0 (Negative <0.35) 234 Class 0 (Negative <0.35) ADDITIONAL INFORMATION Analyte Specific Reagent: This test was developed and its performance characteristics determined by [facility]. It has not been cleared or approved by the U.S. Food and Drug Administration. 235 Class 0 (Negative <0.35) 236 Class 0 (Negative <0.35) 237 Class 0 (Negative <0.35) 238 Class 0 (Negative <0.35) 239 Class 0 (Negative <0.35) 240 Class 0 (Negative <0.35) 241 Class 0 (Negative <0.35) 242 Class 0 (Negative <0.35) 243 Class 0 (Negative <0.35) 244 Class 0 (Negative <0.35) 245 Class 0 (Negative <0.35) 246 Class 0 (Negative <0.35) ADDITIONAL INFORMATION Feather Panel 2: Goose feathers Chicken feathers Duck feathers Amelia feathers Analyte Specific Reagent: This test was developed and its performance characteristics determined by [facility]. It has not been cleared or approved by the U.S. Food and Drug Administration. 247 Class 0 (Negative <0.35) 248 Class 0 (Negative <0.35) 249 Class 0 (Negative <0.35) Test Performed by: [facility] [employer] [address] [address] Ironworker: Atilio Ji M.D. 250 Class 0 (Negative <0.35) 251 Class 0 (Negative <0.35) 252 Class 0 (Negative <0.35) 253 Class 0 (Negative <0.35) 254 Class 0 (Negative <0.35) 255 Class 0 (Negative <0.35) 256 Class 0 (Negative <0.35) 257 Class 0 (Negative <0.35) 258 Class 0 (Negative <0.35) 259 Class 3 (Positive 3.50-17.4) 260 Class 1 (Equivocal 0.35-0.69) 261 Class 1 (Equivocal 0.35-0.69) 262 Class 0 (Negative <0.35) 263 Class 2 (Positive 0.70-3.49) 264 Class 0 (Negative <0.35) 265 Class 2 (Positive 0.70-3.49) 266 Class 1 (Equivocal 0.35-0.69) 267 Class 1 (Equivocal 0.35-0.69) 268 Class 2 (Positive 0.70-3.49) 269 Class 1 (Equivocal 0.35-0.69) 270 Class 0 (Negative <0.35) 271 Class 0 (Negative <0.35) Test Performed by: [place] [address] Ironworker: Atilio Ji M.D. 272 Class 0 (Negative <0.35) 273 Class 0 (Negative <0.35) 274 Class 0 (Negative <0.35) 275 Class 2 (Positive 0.70-3.49) 276 Class 0 (Negative <0.35) 277 Class 0 (Negative <0.35) ADDITIONAL INFORMATION Analyte Specific Reagent: This test was developed and its performance characteristics determined by [facility]. It has not been cleared or approved by the U.S. Food and Drug Administration. 278 Class 0 (Negative <0.35) 279 Class 0 (Negative <0.35) 280 Class 0 (Negative <0.35) 281 Class 0 (Negative <0.35) 282 Class 0 (Negative <0.35) 283 Class 0 (Negative <0.35) 284 Class 0 (Negative <0.35) 285 Class 0 (Negative <0.35) 286 Class 0 (Negative <0.35) 287 Class 0 (Negative <0.35) 288 Class 0 (Negative <0.35) 289 Class 0 (Negative <0.35) ADDITIONAL INFORMATION Feather Panel 2: Goose feathers Chicken feathers Duck feathers Amelia feathers Analyte Specific Reagent: This test was developed and its performance characteristics determined by [facility]. It has not been cleared or approved by the U.S. Food and Drug Administration. 290 Class 0 (Negative <0.35) 291 Class 0 (Negative <0.35) 292 Class 0 (Negative <0.35) Test Performed by: [place] [address] Ironworker: Atilio Ji M.D. 293 Class 0 (Negative <0.35) 294 Class 0 (Negative <0.35) 295 Class 0 (Negative <0.35) 296 Class 0 (Negative <0.35) 297 Class 0 (Negative <0.35) 298 Class 0 (Negative <0.35) 299 Class 0 (Negative <0.35) 300 Class 0 (Negative <0.35) 301 Class 0 (Negative <0.35) Procedures Date CPT Code Description Status 08/03/2014 71594 Tympanometry Completed Encounters Type Date Location Provider CPT E/M Dx Office Visit 12/24/2017 9:45a Donald,After 08/31/07 Allan Martinez 02303 J35.01 Office Visit 10/18/2014 11:30a Donald,After 08/31/07 Allan Martinez 33448 477.9 381.81 Office Visit 09/06/2014 10:30a Donald,After 08/31/07 [place] [address] 381.81 477.9 Office Visit 08/03/2014 9:00a Donald,After 08/31/07 [place] [address] 478.19 [phone] 381.81 Plan of Care No Information Available
[2018-01-20 17:00] VITALS: BP 141/84
[2018-01-20] MEDS ORDERED: Lidocaine 1% MPF* 2 ML VIAL INJ ONE (17:57)
[2018-01-20] MEDS ORDERED: Lidocaine 1% MPF* 2 ML VIAL ONE (18:00)
[2018-01-20] MEDS ORDERED: Ibuprofen TAB* 600 MG PO ONE (18:14)
[2018-01-20] MEDS ORDERED: Bacitracin OINTMENT* 0.5% 0.5 oz TUBE TOPICAL ONE (18:28)
--- NOTE | 2018-01-20 19:59 | UC ---
Rochelle Booth Rebecca, scribed for Zachary Daniels MD on 01/20/18 at 1800 . Head Injury HPI - HPI Summary HPI Summary: Pt is a 22 y/o M who presents to [facility] with a head laceration s/p head injury. A few hours ago, the pt was trying to move a foosball table that was stuck. While trying to unstick one of the legs, another leg came out and hit him in the head. Injury was on the left presybeterian and initially bled, which was controlled with compression. Negative LOC. Associated pain is currently mild, ranked 3/10. Denies vision changes, weakness, numbness, and dental pain. - History Of Current Complaint Chief Complaint: UCHeadInjury Stated Complaint: HEAD INJURY Time Seen by Provider: 01/20/18 17:51 Hx Obtained From: Patient Onset/Duration: Lasting Hours, Still Present Severity Currently: Mild Pain Intensity: 3 Pain Scale Used: 0-10 Numeric Aggravating Factor(s): Nothing Alleviating Factor(s): Other - Compression Associated Signs And Symptoms: Positive: Negative - Allergies/Home Medications Allergies/Adverse Reactions: Allergies Allergy/AdvReac Type Severity Reaction Status Date / Time amoxicillin Allergy Swelling Verified 01/20/18 17:01 Penicillins Allergy Unknown Verified 01/20/18 17:01 Reaction Details PMH/Surg Hx/FS Hx/Imm Hx - Additional Past Medical History Additional PMH: NEGATIVE PMHx: DM, HTN GI/ History: Gastroesophageal Reflux Other History Of: Negative For: Anticoagulant Therapy - Surgical History Surgical History: Yes Surgery Procedure, Year, and Place: WISDOM TEETH - Family History Known Family History: Negative: Hypertension, Diabetes - Social History Alcohol Use: Rare Substance Use Type: None Smoking Status (MU): Never Smoked Tobacco Review of Systems Constitutional: Negative Skin: Other - Head laceration Eyes: Negative ENT: Negative Respiratory: Negative Cardiovascular: Negative Gastrointestinal: Negative Genitourinary: Negative Motor: Negative Neurovascular: Negative Musculoskeletal: Negative 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 Physical Exam - Summary Physical Exam Summary: General: well-appearing, no pain distress Skin: warm, color reflects adequate perfusion, dry, 1.5 cm star-shaped laceration on the left presybeterian Head: normal Eyes: EOMI, MIGUEL ANGEL ENT: normal Neck: supple, nontender Respiratory: CTA, breath sounds present Cardiovascular: RRR Abdomen: soft, nontender Bowel: present Musculoskeletal: normal, strength/ROM intact Neurological: sensory/motor intact, A&O x3 Psychological: affect/mood appropriate Triage Information Reviewed: Yes Vital Signs: Initial Vital Signs Temp 99.6 F 01/20/18 16:57 Pulse 68 01/20/18 16:57 Resp 18 01/20/18 16:57 BP 141/84 01/20/18 16:57 Pulse Ox 100 01/20/18 16:57 Vital Signs Reviewed: Yes Procedures - Laceration/Wound Repair 1 Location: head - Left presybeterian Description: Stellate Anesthesia: 1.0%, Lido Length, Depth and Shape: 1.5 cm Irrigated w/ Saline (ccs): 10 - sterlie saline Closure: Single Layer Suture Type: Prolene - 5-0 Number of Sutures: 3 Re-Evaluation - Re-Evaluation First Eval Re-Evaluation Time: 18:20 Comment: Laceration repair. Head Injury Course/Dx - Differential Dx/Diagnosis Provider Diagnoses: SCALP LACERATION Discharge - Sign-Out/Discharge Documenting (check all that apply): Discharge/Admit/Transfer - Discharge - Discharge Plan Condition: Stable Disposition: HOME Patient Education Materials: Care For Your Stitches (ED), Laceration (ED) Referrals: Julian Vasquez MD [Primary Care Provider] - Additional Instructions: FOLLOW UP WITH YOUR DOCTOR IN 7 DAYS TO GET THE SUTURES REMOVED. APPLY ANTIBIOTIC OINTMENT TO THE WOUND 2 TO 3 TIMES A DAY. GET RECHECKED FOR ANY WORSENING OF YOUR CONDITION OR QUESTIONS OR CONCERNS. - Billing Disposition and Condition Condition: STABLE Disposition: HOME The documentation as recorded by the Rochelle ruiz Rebecca accurately reflects the service I personally performed and the decisions made by me, Zachary Daniels MD.
== END 2018-01-20 18:40 | disposition home or self-care (01) ==
LOC: UCEAST 16:40
DX: S01.01XA Laceration without foreign body of scalp, initial encounter (principal); W22.8XXA Striking against or struck by other objects, initial encounter; Y93.89 Activity, other specified; Y92.9 Unspecified place or not applicable; K21.9 Gastro-esophageal reflux disease without esophagitis; Z88.0 Allergy status to penicillin
CPT/HCPCS: 12001; 99212; A9270-GY; G0463

== ENCOUNTER 2019-02-18 10:13 | Emergency (ER) | payer OTHER ==
[2019-02-18 10:49] VITALS: BP 117/61
--- NOTE | 2019-02-18 12:05 | UC ---
Throat Pain/Nasal Saul HPI - HPI Summary HPI Summary: 23 y/o male presents to the urgent care c/o c/o sore throat for the past 3 days. pain w/ swallowing is 7/10. He has not taken any medications to alleviate symptoms. He states about 6 months ago he had similar symptoms and swelling improved the Prednisone PO. Pt denies URI, cough, fever, SOB, chest pain, abdominal pain, N/V/D. - History of Current Complaint Chief Complaint: UCGeneralIllness Stated Complaint: SORE THROAT Time Seen by Provider: 02/18/19 12:04 Hx Obtained From: Patient Onset/Duration: Gradual Onset, Lasting Days - 3 days Severity: Moderate Pain Intensity: 7 Pain Scale Used: 0-10 Numeric Cough: None Associated Signs & Symptoms: Positive: Dysphagia. Negative: Wheezing, Hoarseness, Sinus Discomfort, Nasal Discharge, Fever, Rash - Epiglottits Risk Factors Epiglottis Risk Factors: Negative - Allergies/Home Medications Allergies/Adverse Reactions: Allergies Allergy/AdvReac Type Severity Reaction Status Date / Time amoxicillin Allergy Swelling Verified 02/18/19 10:49 Penicillins Allergy Unknown Verified 02/18/19 10:49 Reaction Details PMH/Surg Hx/FS Hx/Imm Hx Previously Healthy: Yes GI/ History: Gastroesophageal Reflux Other History Of: Negative For: Anticoagulant Therapy - Surgical History Surgical History: Yes Surgery Procedure, Year, and Place: WISDOM TEETH - Family History Known Family History: Positive: None - Pt deneis FMHX Negative: Hypertension, Diabetes - Social History Occupation: Employed Full-time Lives: With Family Alcohol Use: Rare Substance Use Type: None Smoking Status (MU): Never Smoked Tobacco - Immunization History Vaccination Up to Date: Yes Review of Systems All Other Systems Reviewed And Are Negative: Yes Constitutional: Positive: Negative Skin: Positive: Negative Eyes: Positive: Negative ENT: Positive: Sore Throat Respiratory: Positive: Negative Cardiovascular: Positive: Negative Gastrointestinal: Positive: Negative Genitourinary: Positive: Negative Motor: Positive: Negative Neurovascular: Positive: Negative Musculoskeletal: Positive: Negative Neurological: Positive: Negative Psychological: Positive: Negative Is Patient Immunocompromised?: No Physical Exam - Summary Physical Exam Summary: VITAL SIGNS: Reviewed. GENERAL: Patient is a well developed and nourished male child who is sitting comfortable in the examining table. Patient is not in any acute respiratory distress. HEAD AND FACE: No signs of trauma. No ecchymosis, hematomas or skull depressions. No sinus tenderness. EYES: PERRLA, EOMI x 2, No injected conjunctiva, no nystagmus. No photophobia. EARS: Hearing grossly intact. Ear canals and tympanic membranes are within normal limits. MOUTH: Positive pharynx with mild erythema, no exudates, No B/L tonsillar enlargement , no exudate. Uvula in midline. edematous nasal mucosa w/ clear nasal discharge, clear PND NECK: Supple, trachea is midline, Positive anterior cervical lymphadenopathy, no JVD, no carotid bruit, no c-spine tenderness, neck with full ROM. No meningeal signs, no Kernig's or brudzinskis signs. CHEST: Symmetric, no tenderness at palpation LUNGS: Clear to auscultation bilaterally. No wheezing or crackles. CVS: Regular rate and rhythm, S1 and S2 present, no murmurs or gallops appreciated. ABDOMEN: Soft, non-tender. No signs of distention. No rebound no guarding, and no masses palpated. Bowel sounds are normal. EXTREMITIES: FROM in all major joints, no edema, no cyanosis or clubbing. NEURO: Alert and oriented x 3. No acute neurological deficits. Pt follows commands. SKIN: Dry and warm Triage Information Reviewed: Yes Vital Signs: Initial Vital Signs Temp 98.2 F 02/18/19 10:47 Pulse 52 02/18/19 10:47 Resp 16 02/18/19 10:47 BP 117/61 02/18/19 10:47 Pulse Ox 100 02/18/19 10:47 Throat Pain/Nasal Course/Dx - Course Course Of Treatment: 23 y/o male presents to the urgent care c/o c/o sore throat for the past 3 days. pain w/ swallowing is 7/10. He has not taken any medications to alleviate symptoms. He states about 6 months ago he had similar symptoms and swelling improved the Prednisone PO. Pt denies URI, cough, fever, SOB, chest pain, abdominal pain, N/V/D. Hx obtained. Pt w/ pharyngitis on examination. Rapid strep: negative. Pt declined Monospot test. Pt Rx Prednisone PO as directed and advised to also take Ibuprofen PO to alleviate symptoms. Advised on hand washing to avoid spreading. Pt advised to rest, eat well and avoid strenuous exercise. If symptoms do not improve or worsen advised to return to the urgent care or f/u with her PCP for further evaluation and treatment. Pt understood and agreed - Differential Dx/Diagnosis Differential Diagnosis/HQI/PQRI: Laryngitis, Mononucleosis, Peritonsillar Abscess, Pharyngitis, Sinusitis, Tonsillitis Provider Diagnosis: Pharyngitis Discharge - Sign-Out/Discharge Documenting (check all that apply): Patient Departure - d/c home All imaging exams completed and their final reports reviewed: No Studies - Discharge Plan Condition: Stable Disposition: HOME Prescriptions: predniSONE TAB* [Deltasone 20 MG TAB*] 20 mg PO DAILY #11 tab Patient Education Materials: Pharyngitis (ED) Referrals: Julian Vasquez MD [Primary Care Provider] - 3 Days Additional Instructions: 1- Please take Prednisone PO as directed to alleviate symptoms . 2-Please take ibuprofen PO q6-8hrs prn as instructed after meals to alleviate pain and swelling. Please make sure you take Omeprazole daily , Increase fluid intake, eat well, rest and avoid strenuous exercise 3-If symptoms do not improve or worsen please return to the urgent care or f/u with your PCP in 3 days for further evaluation and treatment. - Billing Disposition and Condition Condition: STABLE Disposition: Home
== END 2019-02-18 12:21 | disposition home or self-care (01) ==
LOC: UCEAST 10:13
DX: J02.9 Acute pharyngitis, unspecified (principal); K21.9 Gastro-esophageal reflux disease without esophagitis; Z88.0 Allergy status to penicillin
CPT/HCPCS: 87651; 99212; G0463

== ENCOUNTER 2019-03-01 15:03 | Emergency (ER) | payer OTHER ==
[2019-03-01 15:09] VITALS: BP 136/81
--- NOTE | 2019-03-01 15:09 | UC ---
Laceration HPI - HPI Summary HPI Summary: 23 yo male presents with RIGHT 5th digit laceration. He tells me that he was cleaning a glass when it broke and he sustained a laceration to his right 5th digit. He is right handed. He bandaged the area and came to . Last tetanus was within the last 3 years. - History Of Current Complaint Stated Complaint: FINGER LACERATION Time Seen by Provider: 03/01/19 15:08 Hx Obtained From: Patient Laceration Location: Finger Mechanism Of Injury: Sharp Trauma Onset/Duration: Sudden Onset Severity: Mild Pain Intensity: 2 Pain Scale Used: 0-10 Numeric - Allergies/Home Medications Allergies/Adverse Reactions: Allergies Allergy/AdvReac Type Severity Reaction Status Date / Time amoxicillin Allergy Swelling Verified 03/01/19 15:09 Penicillins Allergy Unknown Verified 03/01/19 15:09 Reaction Details Home Medications: Home Medications T3/T4 88 mg PO DAILY 03/01/19 [History Confirmed 03/01/19] PMH/Surg Hx/FS Hx/Imm Hx Endocrine History: Thyroid Disease GI/ History: Gastroesophageal Reflux Other History Of: Negative For: Anticoagulant Therapy - Surgical History Surgical History: Yes Surgery Procedure, Year, and Place: WISDOM TEETH - Family History Known Family History: Positive: None - Pt deneis FMHX Negative: Hypertension, Diabetes - Social History Lives: With Family Alcohol Use: Rare Substance Use Type: None Smoking Status (MU): Never Smoked Tobacco - Immunization History Vaccination Up to Date: Yes Review of Systems All Other Systems Reviewed And Are Negative: Yes Constitutional: Positive: Negative Skin: Positive: Other - Right 5th digit laceration Respiratory: Positive: Negative Cardiovascular: Positive: Negative Neurovascular: Positive: Negative Musculoskeletal: Positive: Negative Neurological: Positive: Negative Psychological: Positive: Negative Physical Exam - Summary Physical Exam Summary: GENERAL: NAD. WDWN. No pain distress. SKIN: RIGHT 5th digit: dorsal proximal phalanx with 1.5cm V shaped flap-like laceration just through the dermis. No tendon involvement. Mild active bleeding. NECK: Supple. Nontender. No lymphadenopathy. CHEST: No accessory muscle use. Breathing comfortably and in no distress. CV: Pulses intact. Cap refill <2seconds MSK: FROM at PIP and DIP of right 5th digit. NEURO: Alert. PSYCH: Age appropriate behavior. Triage Information Reviewed: Yes Vital Signs: Vital Signs: Temp Pulse Resp BP Pulse Ox 100.1 F 87 12 136/81 100 03/01/19 15:06 03/01/19 15:06 03/01/19 15:06 03/01/19 15:06 03/01/19 15:06 Vital Signs Reviewed: Yes Laceration Repair - Laceration Repair 1 Description: Irregular - V shaped Laceration Size After Repair: Length (cm) - 1.5 Modified For Repair: No Anesthesia Used: 2.0% Lido Irrigation With Pressure Irrigation Device: Yes Closure Material: Sutures - #4 Closure Method: Single Layer Suture Of: Skin Suture Type: Prolene Laceration Course/Dx - Course/Dx Course Of Treatment: The procedure was explained to the pt and all questions were answered. A time out was performed, witnessed, and signed. The area was irrigated with 200mL sterile saline. 1mL of 2% lidocaine without epi was administered and good anesthetization was achieved. In the usual sterile fashion, TWO 5-0 prolene and TWO 6-0 prolene interrupted sutures were placed. The wound was bandaged with telfa. Pt tolerated procedure well. He was placed in a finger splint to use until tomorrow morning in order to prevent flexion of the digit until further healed. - Diagnosis Provider Diagnosis: Laceration of right little finger Discharge - Sign-Out/Discharge Documenting (check all that apply): Patient Departure All imaging exams completed and their final reports reviewed: No Studies - Discharge Plan Condition: Stable Disposition: HOME Patient Education Materials: Care For Your Stitches (DC), Laceration (ED) Referrals: Julian Vasquez MD [Primary Care Provider] - Additional Instructions: 1) Please keep the area bandaged, clean, dry, and intact for the next 24- 48hours and then keep covered daily with a bandaged until sutures are removed. Use the finger splint for the rest of the day today and through the night to keep your finger straight. This is to allow the wound to heal as using your finger may cause the stitches to burst. 2) If you develop a fever, colored or thick discharge, increased pain or swelling - please call your PCP or return for a wound check. 3) Please return in 10-14 days to have your FOUR sutures removed. - Billing Disposition and Condition Condition: STABLE Disposition: Home - Attestation Statements Provider Attestation: Per institutional requirements, I have reviewed the chart, however, I was not consulted specifically or made aware of this patient by the midlevel provider. I did not personally evaluate, interact with , or disposition this patient.
[2019-03-01] MEDS ORDERED: Lidocaine 2% PF * 5 ML VIAL INJ ONE (15:18)
== END 2019-03-01 15:58 | disposition home or self-care (01) ==
LOC: UCEAST 15:03
DX: S61.216A Laceration without foreign body of right little finger without damage to nail, initial encounter (principal); W25.XXXA Contact with sharp glass, initial encounter; Y93.E9 Activity, other interior property and clothing maintenance; Y92.010 Kitchen of single-family (private) house as the place of occurrence of the external cause; Y99.8 Other external cause status; E07.9 Disorder of thyroid, unspecified; K21.9 Gastro-esophageal reflux disease without esophagitis; Z88.0 Allergy status to penicillin
CPT/HCPCS: 12001; 99211; G0463